=== PATIENT | female | born 1965 | race American Indian/Alaskan Native ===

== ENCOUNTER 2016-09-01 12:19 | Emergency (ER) | payer OTHER ==
[2016-09-01 12:52] VITALS: BP 159/98
[2016-09-01] MEDS ORDERED: ZOFRAN ODT ONE (12:52)
[2016-09-01] MEDS ORDERED: ZOFRAN PO ONE (12:54)
[2016-09-01 13:30] LABS: Basophils % (Auto) 0.5 % (0.0-1.8); Eosinophils % (Auto) 0.1 % (0.0-4.3); Hematocrit 37.8 % (30.3-42.9); Hemoglobin 11.8 gm/dl (10.1-14.3); Mean Corpuscular HGB Conc 31 % (30-34); Mean Corpuscular Volume 76 fl (79-97); Platelet Count 340 K/mm3 (140-440); Red Blood Count 4.94 M/mm3 (3.65-5.03); Red Cell Distribution Width 18.2 % (13.2-15.2); White Blood Count 7.2 K/mm3 (4.5-11.0)
[2016-09-01 13:32] LABS: Mean Corpuscular Hemoglobin 24 pg (28-32)
[2016-09-01 13:39] LABS: Anion Gap 17 mmol/L; Blood Urea Nitrogen 8 mg/dL (7-17); Calcium 9.6 mg/dL (8.4-10.2); Carbon Dioxide 27 mmol/L (22-30); Chloride 96.2 mmol/L (98-107); Glucose 172 mg/dL (65-100); Potassium 3.6 mmol/L (3.6-5.0); Sodium 137 mmol/L (137-145)
--- NOTE | 2016-09-04 19:12 | ED Elopement Review ---
ED Pt Elopement review - Results review Lab results: Laboratory Tests 09/01/16 09/01/16 09/01/16 12:35 13:04 13:04 WBC 7.2 RBC 4.94 Hgb 11.8 Hct 37.8 MCV 76 L MCH 24 L MCHC 31 RDW 18.2 H Plt Count 340 Lymph % (Auto) 8.0 L [place] % (Auto) 2.2 Eos % (Auto) 0.1 Baso % (Auto) 0.5 Lymph # 0.6 L Clare # 0.2 Eos # 0.0 Baso # 0.0 Seg Neutrophils % 89.2 H Seg Neutrophils # 6.4 Sodium 137 Potassium 3.6 Chloride 96.2 L Carbon Dioxide 27 Anion Gap 17 BUN 8 Creatinine 0.5 L Estimated GFR > 60 BUN/Creatinine Ratio 16.00 Glucose 172 H POC Glucose 198 H Calcium 9.6 HCG, Qual 09/01/16 13:04 WBC RBC Hgb Hct MCV MCH MCHC RDW Plt Count Lymph % (Auto) [place] % (Auto) Eos % (Auto) Baso % (Auto) Lymph # Clare # Eos # Baso # Seg Neutrophils % Seg Neutrophils # Sodium Potassium Chloride Carbon Dioxide Anion Gap BUN Creatinine Estimated GFR BUN/Creatinine Ratio Glucose POC Glucose Calcium HCG, Qual Negative - Call Back decision Pt Call Back Decision: Pt to F/U with PMD
== END 2016-09-01 17:00 | disposition left against medical advice (07) ==
LOC: ED 12:19
DX: R11.2 Nausea with vomiting, unspecified (principal); Z53.21 Procedure and treatment not carried out due to patient leaving prior to being seen by health care provider
CPT/HCPCS: 36415; 80048; 82962; 84703; 85025; Q0162

== ENCOUNTER 2017-11-01 23:54 | Emergency (ER) | payer OTHER ==
[2017-11-02] MEDS ORDERED: ZOFRAN ODT PO ONE (00:10)
[2017-11-02] MEDS ORDERED: ZOFRAN ODT ONE (00:16)
[2017-11-02] MEDS ORDERED: NACL 0.9% 1000 ML 1,000 ML IV ONE ×2 (00:41→02:23)
[2017-11-02] MEDS ORDERED: ZOFRAN IV ONE (00:58)
[2017-11-02] MEDS ORDERED: SUBLIMAZE IV ONE (00:58)
[2017-11-02 01:13] LABS: Basophils % (Auto) 0.8 % (0.0-1.8); Eosinophils # (Auto) 0.1 K/mm3 (0.0-0.4); Eosinophils % (Auto) 1.4 % (0.0-4.3); Hematocrit 39.8 % (30.3-42.9); Hemoglobin 12.5 gm/dl (10.1-14.3); Lymphocytes # (Auto) 0.9 K/mm3 (1.2-5.4); Lymphocytes % (Auto) 18.6 % (13.4-35.0); Mean Corpuscular HGB Conc 31 % (30-34); Mean Corpuscular Volume 79 fl (79-97); Monocytes # (Auto) 0.3 K/mm3 (0.0-0.8); Monocytes % (Auto) 5.3 % (0.0-7.3); Platelet Count 277 K/mm3 (140-440); Red Blood Count 5.02 M/mm3 (3.65-5.03); Red Cell Distribution Width 16.7 % (13.2-15.2)
[2017-11-02 01:17] LABS: Mean Corpuscular Hemoglobin 25 pg (28-32)
--- NOTE | 2017-11-02 02:08 | Emergency Department Report ---
HPI - General Chief Complaint: Hyperglycemia Time Seen by Provider: 11/02/17 00:47 - HPI HPI: The patient is a 52-year-old female with a history of diabetes, who presents for evaluation of abdominal pain, nausea, vomiting, and dizziness. The patient reports progressive abdominal pain, nausea, vomiting, and dizziness for the past one week, abdominal pain cramping in quality, left lower abdomen in location, mild in severity, and is exacerbated with vomiting. She says that her blood sugars have been out of control for the past one week as well. She also admits to positive dysuria and polyphagia. The patient denies fever, chills, night sweats, chest pain, dyspnea, cough, diarrhea, blood in the stool, dark tarry stool, dysuria, hematuria, flank pain, genital discharge, inability to pass flatus. ED Past Medical Hx - Past Medical History Previous Medical History?: Yes Hx Hypertension: Yes Hx Congestive Heart Failure: No Hx Diabetes: Yes Hx Renal Disease: No Hx Arthritis: Yes Hx Kidney Stones: No Hx Asthma: Yes Hx COPD: No Hx Tuberculosis: No Hx HIV: No - Surgical History Past Surgical History?: Yes Additional Surgical History: 2 c-sections, tubal ligation x2 - Social History Smoking Status: Never Smoker Substance Use Type: None - Medications Home Medications: Home Medications Medication Instructions Recorded Confirmed Last Taken Type Butalb/Acetamin/Caff 50-325-40 1 tab PO Q4H PRN #90 tablet 10/18/15 12/25/15 Unknown Rx [Fioricet] Hydrochlorothiazide [HCTZ] 25 mg PO QDAY #30 tablet 10/18/15 12/25/15 Unknown Rx Levothyroxine [Synthroid] 100 mcg PO QAM #30 tablet 10/18/15 12/25/15 Unknown Rx Metoprolol [Lopressor TAB] 50 mg PO BID #60 tablet 10/18/15 12/25/15 Unknown Rx Fluticasone Propionate [Flovent 1 puff IH BID #1 disk.w.dev 12/28/15 Unknown Rx Diskus] Insulin Glargine [Lantus VIAL] 45 units SUB-Q QHS #14 units 12/28/15 12/25/15 Unknown Rx ED Review of Systems ROS: Stated complaint: SUGAR HIGH, DIZZY, BLURRED VISION Other details as noted in HPI Constitutional: reports dizziness denies: fever ENT: denies: throat or neck pain Respiratory: denies: cough, shortness of breath Cardiovascular: denies: chest pain Endocrine: denies unexplained weight loss or gain Gastrointestinal: reports abdominal pain, nausea Genitourinary: denies: dysuria Musculoskeletal: denies: leg swelling Skin: denies: rash Neurological: denies: headache Hematological/Lymphatic: denies: easy bleeding or easy bruising Psych: denies sadness or hopelessness Physical Exam - Physical Exam Vital Signs: Vital Signs 11/02/17 00:25 Temperature 98.1 F Pulse Rate 66 Respiratory 16 Rate Blood Pressure 185/66 O2 Sat by Pulse 97 Oximetry Physical Exam: General: well-nourished, well-developed, no acute distress Head: Normocephalic, atraumatic Eyes: normal sclera ENT: Mucous membranes are pale and dry Neck: No neck stiffness, no cervical adenopathy Respiratory: Breath sounds equal bilaterally, no wheezing, rales, or rhonchi Cardio: S1 and S2 present, no murmurs, rubs, gallops, capillary refill is delayed Abdomen: Normoactive bowel sounds, soft abdomen, LLQ tenderness to palpation present, no epigastric tenderness, no pain at McBurney's point, Araiza sign negative, no rigidity, no guarding or rebound tenderness Musc: No pitting edema Skin: No rash Neuro: no facial drooping, normal speech Psych: Normal affect ED Course Vital Signs 11/02/17 00:25 Temperature 98.1 F Pulse Rate 66 Respiratory 16 Rate Blood Pressure 185/66 O2 Sat by Pulse 97 Oximetry ED Medical Decision Making - Lab Data Result diagrams: 11/02/17 00:44 11/02/17 01:29 - Medical Decision Making The patient was seen and examined by myself. The patient is placed on a mission planner and continuous pulse ox. On initial evaluation, the patient was found to be in no distress. Evaluation orders are placed. IV access is established and the patient is given 1 L normal saline fluid bolus and Zofran for nausea, and IV analgesic for pain. Lab results revealed significant only elevated glucose level of 639, with normal bicarbonate and venous pH level, not consistent with DKA. Otherwise labs were unrevealing including WBC, hemoglobin, hematocrit, renal function. The patient was reevaluated and reported that her pain, nausea, and dizziness were markedly improved. On reexamination the patient's found to have downtrending glucose level from 640 - 490. The patient is given IV insulin for her elevated glucose level. As the patient's lab results are not concerning for DKA, as the patient's symptoms are markedly improved, and she is found to have normal vital signs, the patient will be stable for discharge once glucose has decreased below critically elevated range. The patient will also be given an additional 1 L normal saline fluid bolus, and a repeat Accu-Chek will be performed subsequently. The patient signed off to the heating element winder physician Dr. Dorsey, who agrees to accept care of the patient and to arrange ultimate appropriate disposition. Critical care attestation.: If time is entered above; I have spent that time in minutes in the direct care of this critically ill patient, excluding procedure time. ED Disposition Clinical Impression: Acute hyperglycemia, Acute dehydration, Acute abdominal pain in left lower quadrant, Orthostatic dizziness Disposition: [id number] TO HOME OR SELFCARE Is pt being admited?: No Does the pt Need Aspirin: No Condition: Stable Instructions: Dehydration (ED), Dizziness (ED), Diabetic Hyperglycemia (ED) Referrals: LONA SOMERS MD [Primary Care Provider] - 3-5 Days Time of Disposition: 02:16
[2017-11-02 02:17] LABS: BUN/Creatinine Ratio 16; Blood Urea Nitrogen 11 mg/dL (7-17); Hemolysis Index 1
[2017-11-02] MEDS ORDERED: HumuLIN R IV ONE ×2 (02:23→03:48)
[2017-11-02 02:32] LABS: Amorphous Crystals,Urine 1+; Bilirubin,Urine NEG (Negative); Blood,Urine NEG (Negative); Color,Urine Straw (Yellow); Protein,Urine <15 mg/dL mg/dL (Negative); Urobilinogen,Urine < 2.0 mg/dL (<2.0)
[2017-11-02] MEDS ORDERED: TYLENOL ONE (03:17)
[2017-11-02] MEDS ORDERED: MOTRIN PO ONE ×2 (03:55→04:01)
--- NOTE | 2017-11-02 04:53 | Event Note ---
Date: 11/02/17 Accu-Chek improved. Walking around in no distress. Vital signs unremarkable. Patient will be discharged. It appears that dietary indiscretions are the primary etiology for her hyperglycemia. Vital Signs 11/02/17 11/02/17 11/02/17 00:25 00:28 02:28 Temperature 98.1 F 97.9 F 98.0 F Pulse Rate 66 Respiratory 16 16 Rate Blood Pressure 185/66 Blood Pressure 168/71 [Left] O2 Sat by Pulse 97 99 Oximetry 11/02/17 03:39 Temperature Pulse Rate Respiratory 16 Rate Blood Pressure Blood Pressure [Left] O2 Sat by Pulse 99 Oximetry Lab Results 11/02/17 11/02/17 11/02/17 Range/Units 00:04 00:44 00:44 WBC 5.0 (4.5-11.0) K/mm3 RBC 5.02 (3.65-5.03) M/mm3 Hgb 12.5 (10.1-14.3) gm/dl Hct 39.8 (30.3-42.9) % MCV 79 (79-97) fl MCH 25 L (28-32) pg MCHC 31 (30-34) % RDW 16.7 H (13.2-15.2) % Plt Count 277 (140-440) K/mm3 Lymph % (Auto) 18.6 (13.4-35.0) % [place] % (Auto) 5.3 (0.0-7.3) % Eos % (Auto) 1.4 (0.0-4.3) % Baso % (Auto) 0.8 (0.0-1.8) % Lymph # 0.9 L (1.2-5.4) K/mm3 [place] # 0.3 (0.0-0.8) K/mm3 Eos # 0.1 (0.0-0.4) K/mm3 Baso # 0.0 (0.0-0.1) K/mm3 Seg Neutrophils % 73.9 H (40.0-70.0) % Seg Neutrophils # 3.7 (1.8-7.7) K/mm3 VBG pH 7.345 (7.320-7.420) Sodium (137-145) mmol/L Potassium (3.6-5.0) mmol/L Chloride (98-107) mmol/L Carbon Dioxide (22-30) mmol/L Anion Gap mmol/L BUN (7-17) mg/dL Creatinine (0.7-1.2) mg/dL Estimated GFR ml/min BUN/Creatinine Ratio % Glucose (65-100) mg/dL POC Glucose > 500 H (70-105) Calcium (8.4-10.2) mg/dL NT-Pro-B Natriuret Pep (0-900) pg/mL Urine Color (Yellow) Urine Turbidity (Clear) Urine pH (5.0-7.0) Ur Specific [place] (1.003-1.030) Urine Protein (Negative) mg/dL Urine Glucose (UA) (Negative) mg/dL Urine Ketones (Negative) mg/dL Urine Blood (Negative) Urine Nitrite (Negative) Urine Bilirubin (Negative) Urine Urobilinogen (<2.0) mg/dL Ur Leukocyte Esterase (Negative) Urine WBC (Auto) (0.0-6.0) /HPF Urine RBC (Auto) (0.0-6.0) /HPF U Epithel Cells (Auto) (0-13.0) /HPF Amorphous Crystals 11/02/17 11/02/17 11/02/17 Range/Units 01:29 01:29 02:21 WBC (4.5-11.0) K/mm3 RBC (3.65-5.03) M/mm3 Hgb (10.1-14.3) gm/dl Hct (30.3-42.9) % MCV (79-97) fl MCH (28-32) pg MCHC (30-34) % RDW (13.2-15.2) % Plt Count (140-440) K/mm3 Lymph % (Auto) (13.4-35.0) % [place] % (Auto) (0.0-7.3) % Eos % (Auto) (0.0-4.3) % Baso % (Auto) (0.0-1.8) % Lymph # (1.2-5.4) K/mm3 [place] # (0.0-0.8) K/mm3 Eos # (0.0-0.4) K/mm3 Baso # (0.0-0.1) K/mm3 Seg Neutrophils % (40.0-70.0) % Seg Neutrophils # (1.8-7.7) K/mm3 VBG pH (7.320-7.420) Sodium 134 L (137-145) mmol/L Potassium 4.7 (3.6-5.0) mmol/L Chloride 96.4 L (98-107) mmol/L Carbon Dioxide 26 (22-30) mmol/L Anion Gap 16 mmol/L BUN 11 (7-17) mg/dL Creatinine 0.7 (0.7-1.2) mg/dL Estimated GFR > 60 ml/min BUN/Creatinine Ratio 16 % Glucose 639 H* (65-100) mg/dL POC Glucose (70-105) Calcium 9.0 (8.4-10.2) mg/dL NT-Pro-B Natriuret Pep 52.26 (0-900) pg/mL Urine Color Straw (Yellow) Urine Turbidity Clear (Clear) Urine pH 6.0 (5.0-7.0) Ur Specific [place] 1.026 (1.003-1.030) Urine Protein <15 mg/dl (Negative) mg/dL Urine Glucose (UA) >=500 (Negative) mg/dL Urine Ketones Tr (Negative) mg/dL Urine Blood Neg (Negative) Urine Nitrite Neg (Negative) Urine Bilirubin Neg (Negative) Urine Urobilinogen < 2.0 (<2.0) mg/dL Ur Leukocyte Esterase Neg (Negative) Urine WBC (Auto) 1.0 (0.0-6.0) /HPF Urine RBC (Auto) 1.0 (0.0-6.0) /HPF U Epithel Cells (Auto) 2.0 (0-13.0) /HPF Amorphous Crystals 1+ 11/02/17 11/02/17 Range/Units 02:43 03:48 WBC (4.5-11.0) K/mm3 RBC (3.65-5.03) M/mm3 Hgb (10.1-14.3) gm/dl Hct (30.3-42.9) % MCV (79-97) fl MCH (28-32) pg MCHC (30-34) % RDW (13.2-15.2) % Plt Count (140-440) K/mm3 Lymph % (Auto) (13.4-35.0) % [place] % (Auto) (0.0-7.3) % Eos % (Auto) (0.0-4.3) % Baso % (Auto) (0.0-1.8) % Lymph # (1.2-5.4) K/mm3 [place] # (0.0-0.8) K/mm3 Eos # (0.0-0.4) K/mm3 Baso # (0.0-0.1) K/mm3 Seg Neutrophils % (40.0-70.0) % Seg Neutrophils # (1.8-7.7) K/mm3 VBG pH (7.320-7.420) Sodium (137-145) mmol/L Potassium (3.6-5.0) mmol/L Chloride (98-107) mmol/L Carbon Dioxide (22-30) mmol/L Anion Gap mmol/L BUN (7-17) mg/dL Creatinine (0.7-1.2) mg/dL Estimated GFR ml/min BUN/Creatinine Ratio % Glucose (65-100) mg/dL POC Glucose 495 H 334 H (70-105) Calcium (8.4-10.2) mg/dL NT-Pro-B Natriuret Pep (0-900) pg/mL Urine Color (Yellow) Urine Turbidity (Clear) Urine pH (5.0-7.0) Ur Specific [place] (1.003-1.030) Urine Protein (Negative) mg/dL Urine Glucose (UA) (Negative) mg/dL Urine Ketones (Negative) mg/dL Urine Blood (Negative) Urine Nitrite (Negative) Urine Bilirubin (Negative) Urine Urobilinogen (<2.0) mg/dL Ur Leukocyte Esterase (Negative) Urine WBC (Auto) (0.0-6.0) /HPF Urine RBC (Auto) (0.0-6.0) /HPF U Epithel Cells (Auto) (0-13.0) /HPF Amorphous Crystals
[2017-11-02 05:07] VITALS: BP 143/61
== END 2017-11-02 04:55 | disposition home or self-care (01) ==
LOC: ED 23:54
DX: E11.65 Type 2 diabetes mellitus with hyperglycemia (principal); E86.0 Dehydration; I10 Essential (primary) hypertension; M19.90 Unspecified osteoarthritis, unspecified site; J45.909 Unspecified asthma, uncomplicated
CPT/HCPCS: 36415; 80048; 81001; 82805; 82962; 83880; 85025; 93005; 93010; 96361; 96374; 96375; 96376; 99284; J2405; J3010; J7030; J1815; Q0162

== ENCOUNTER 2019-06-15 12:45 | Emergency (ER) | payer OTHER ==
[2019-06-15 13:47] VITALS: BP 140/67
--- NOTE | 2019-06-15 13:51 | Event Note ---
ED Screening Note Date of service: 06/15/19 Time: 13:47 ED Screening Note: This is a 54 y.o. F. that presents to the ER with URI symptoms and lethargic started this week. Patient states she checked her glucose earlier and it was 515. She took 13 units of humalog prior to arrival. Patient states she still feel like its elevated. + Cough, rhinorrhea, headache, dizziness, nausea, chills, and myalgia. Appetite decreased. This initial assessment/diagnostic orders/clinical plan/treatment(s) is/are subject to change based on patients health status, clinical progression and re- assessment by fellow clinical providers in the ED. Further treatment and workup at subsequent clinical providers discretion. Patient/guardian urged not to elope from the ED as their condition may be serious if not clinically assessed and managed. Initial orders include: BG 210
[2019-06-15] MEDS ORDERED: ALBUTEROL 2.5 MG/3 ML NEBU IH ONE (16:33)
[2019-06-15] MEDS ORDERED: methylPREDNISolone Sod Succinate 125 MG/2 ML INJ IM ONE (16:33)
[2019-06-15] MEDS ORDERED: guaiFENesin/CODEINE 100-10MG ORAL LIQD 5 ML PO ONE (16:34)
--- NOTE | 2019-06-15 16:40 | Emergency Department Report ---
- General Chief Complaint: Upper Respiratory Infection Stated Complaint: FLU SYM/NAUSEA/DIZZY Time Seen by Provider: 06/15/19 13:47 Source: patient Mode of arrival: Ambulatory Limitations: No Limitations - History of Present Illness Initial Comments: This is a 54-year-old female with a past medical history of diabetes hypothyroidism,hypertension c/roberta body aches fever headache and productive cough generalized weakness 3 days. She denies chest pain shortness of breath no vomiting or diarrhea. MD Complaint: fever, cough -: days(s) (3) Consistency: constant Worsens With: nothing Associated Symptoms: chills, cough. denies: rash Treatments Prior to Arrival: "cold medicine" - Related Data Previous Rx's Medication Instructions Recorded Last Taken Type Butalb/Acetamin/Caff 50-325-40 1 tab PO Q4H PRN #90 tablet 10/18/15 Unknown Rx [Fioricet 50-325-40] Levothyroxine [Synthroid] 100 mcg PO QAM #30 tablet 10/18/15 Unknown Rx Metoprolol [Lopressor TAB] 50 mg PO BID #60 tablet 10/18/15 Unknown Rx hydroCHLOROthiazide [HCTZ] 25 mg PO QDAY #30 tablet 10/18/15 Unknown Rx Fluticasone Propionate [Flovent 1 puff IH BID #1 disk.w.dev 12/28/15 Unknown Rx Diskus] Insulin Glargine [Lantus VIAL] 45 units SUB-Q QHS #14 units 12/28/15 Unknown Rx Azithromycin [Zithromax Z-LIDIA] 0 mg PO DAILY #1 pack 06/15/19 Unknown Rx guaiFENesin/CODEINE [Robitussin AC] 5 ml PO Q4H PRN #60 ml 06/15/19 Unknown Rx Allergies Allergy/AdvReac Type Severity Reaction Status Date / Time No Known Allergies Allergy Verified 10/16/15 06:53 ED Review of Systems ROS: Stated complaint: FLU SYM/NAUSEA/DIZZY Other details as noted in HPI Comment: All other systems reviewed and negative Constitutional: chills, malaise Eyes: denies: eye pain ENT: denies: ear pain, throat pain Respiratory: cough, wheezing. denies: shortness of breath Cardiovascular: denies: chest pain, palpitations, dyspnea on exertion, edema, syncope Endocrine: denies: excessive sweating Gastrointestinal: denies: abdominal pain, nausea, diarrhea, constipation Musculoskeletal: myalgia. denies: back pain Skin: denies: lesions Neurological: headache. denies: numbness, paresthesias, abnormal gait ED Past Medical Hx - Past Medical History Previous Medical History?: Yes Hx Hypertension: Yes Hx Congestive Heart Failure: No Hx Diabetes: Yes Hx Renal Disease: No Hx Arthritis: Yes Hx Kidney Stones: No Hx Asthma: Yes Hx COPD: No Hx Tuberculosis: No Hx HIV: No - Surgical History Past Surgical History?: Yes Additional Surgical History: 2 c-sections, tubal ligation x2 - Social History Smoking Status: Never Smoker Substance Use Type: None - Medications Home Medications: Home Medications Medication Instructions Recorded Confirmed Last Taken Type Butalb/Acetamin/Caff 50-325-40 1 tab PO Q4H PRN #90 tablet 10/18/15 12/25/15 Unknown Rx [Fioricet 50-325-40] Levothyroxine [Synthroid] 100 mcg PO QAM #30 tablet 10/18/15 12/25/15 Unknown Rx Metoprolol [Lopressor TAB] 50 mg PO BID #60 tablet 10/18/15 12/25/15 Unknown Rx hydroCHLOROthiazide [HCTZ] 25 mg PO QDAY #30 tablet 10/18/15 12/25/15 Unknown Rx Fluticasone Propionate [Flovent 1 puff IH BID #1 disk.w.dev 12/28/15 Unknown Rx Diskus] Insulin Glargine [Lantus VIAL] 45 units SUB-Q QHS #14 units 12/28/15 12/25/15 Unknown Rx Azithromycin [Zithromax Z-LIDIA] 0 mg PO DAILY #1 pack 06/15/19 Unknown Rx guaiFENesin/CODEINE [Robitussin AC] 5 ml PO Q4H PRN #60 ml 06/15/19 Unknown Rx ED Physical Exam - General Limitations: No Limitations General appearance: alert, in no apparent distress - Head Head exam: Present: atraumatic - Eye Eye exam: Present: normal appearance - ENT ENT exam: Present: normal exam, mucous membranes moist, TM's normal bilaterally - Neck Neck exam: Present: normal inspection - Respiratory Respiratory exam: Present: normal lung sounds bilaterally, wheezes. Absent: respiratory distress, rales, rhonchi - Cardiovascular Cardiovascular Exam: Present: regular rate, normal heart sounds - GI/Abdominal GI/Abdominal exam: Present: soft. Absent: distended - Extremities Exam Extremities exam: Present: normal inspection, full ROM - Back Exam Back exam: Present: normal inspection - Neurological Exam Neurological exam: Present: alert, oriented X3 - Psychiatric Psychiatric exam: Present: normal affect - Skin Skin exam: Present: warm, dry, intact, normal color ED Course Vital Signs 06/15/19 12:58 Temperature 100.4 F H Pulse Rate 104 H Respiratory 20 Rate Blood Pressure 140/67 O2 Sat by Pulse 99 Oximetry - Reevaluation(s) Reevaluation #1: 06/15/19 18:24 After Nebulizer treatment lungs reassessed no current wheezing respiration easy and unlabored ED Medical Decision Making - Radiology Data Radiology results: report reviewed chest xray LUNGS / PLEURA: Mild upper lung zone pulmonary vascular prominence is seen suggesting mild congestion. No obvious pulmonary edema seen. No pleural effusions are noted. No areas of consolidation are seen. No pneumothorax. ADDITIONAL FINDINGS: No significant additional findings. IMPRESSION: Mild congestion - Medical Decision Making This 54-year-old female with a known history of diabetes and asthma she came in to the ER with complaint of chronic cough headache wheezing dizziness body aches and chills. After duoneb 5mg treatment and lungs were completely clear. Chest x-ray showed mild congestion. Influenza swab negative Will not continue steroids due to patient's diabetes. On arrival patient had a low-grade 100.4 fever. Discharge with Z-Lidia and Robitussin AC . Critical Care Time: No Critical care attestation.: If time is entered above; I have spent that time in minutes in the direct care of this critically ill patient, excluding procedure time. ED Disposition Clinical Impression: Pulmonary congestion URI (upper respiratory infection) Qualifiers: URI type: unspecified URI Qualified Code(s): J06.9 - Acute upper respiratory infection, unspecified Asthma Qualifiers: Asthma severity: mild Asthma persistence: intermittent Asthma complication type: uncomplicated Qualified Code(s): J45.20 - Mild intermittent asthma, uncomplicated Disposition: - TO HOME OR SELFCARE Is pt being admited?: No Does the pt Need Aspirin: No Condition: Stable Instructions: Asthma (ED) Additional Instructions: Rest increase oral hydration. Follow up with PCP or return to the ER for worsening symptoms such as Shortness of Breath, Fever. Prescriptions: guaiFENesin/CODEINE [Robitussin AC] 5 ml PO Q4H PRN #60 ml PRN Reason: Cough Azithromycin [Zithromax Z-LIDIA] 0 mg PO DAILY #1 pack Referrals: PRIMARY CARE, [Primary Care Provider] - 3-5 Days Time of Disposition: 18:22
[2019-06-15] MEDS ORDERED: ONDANSETRON 4 MG ODT TAB PO ONE (17:25)
--- NOTE | 2019-06-15 17:39 | XRay Report ---
CHEST 2 VIEWS 1650 INDICATION / CLINICAL INFORMATION: wheezing and cough COMPARISON: 12/25/2015 FINDINGS: SUPPORT DEVICES: None. HEART / MEDIASTINUM: Mild cardiomegaly LUNGS / PLEURA: Mild upper lung zone pulmonary vascular prominence is seen suggesting mild congestion . No obvious pulmonary edema seen. No pleural effusions are noted. No areas of consolidation are seen . No pneumothorax. ADDITIONAL FINDINGS: No significant additional findings. IMPRESSION: Mild congestion Signer Name: Kian Caraballo MD Signed: 06/15/2019 5:34 PM Workstation Name: [id number]
== END 2019-06-15 18:39 | disposition home or self-care (01) ==
LOC: ED 12:45
DX: J06.9 Acute upper respiratory infection, unspecified (principal); R09.89 Other specified symptoms and signs involving the circulatory and respiratory systems; J45.909 Unspecified asthma, uncomplicated; M19.90 Unspecified osteoarthritis, unspecified site; I10 Essential (primary) hypertension; E11.9 Type 2 diabetes mellitus without complications; Z98.890 Other specified postprocedural states; Z98.51 Tubal ligation status; Z79.899 Other long term (current) drug therapy
CPT/HCPCS: 71046; 82962; 87400; 94640; 96372; 99284; J2930; 94644; Q0162